=== PATIENT | male | born 1990 | race Caucasian/White ===

== ENCOUNTER 2023-03-16 13:27 | Inpatient (IN) | payer OTHER, SELFPAY ==
[2023-03-16] MEDS ORDERED: NA CHLORIDE 0.9% 1,000 ML ONE ×3 (15:01→20:50)
[2023-03-16] MEDS ORDERED: CEFTRIAXONE 2000 MG/VIAL ONE (15:01)
[2023-03-16] MEDS ORDERED: ACETAMINOPHEN 500 MG TAB ONE (15:01)
[2023-03-16] MEDS ORDERED: IBUPROFEN 400 MG TAB ONE ×2 (15:01→21:10)
[2023-03-16 15:19] LABS: Absolute Lymphocytes (CBC) 0.9 K/uL (0.7-4.9); Hematocrit 40.5 % (39.6-49.0); Lymphocytes % 3.8 % (15.3-44.8); MCV 79.7 fL (80-100); MPV 7.6 fL (7.6-11.3); Platelets 219 thou/uL (152-406); RBC Red Blood Cell Count 5.09 M/uL (4.33-5.43)
[2023-03-16] MEDS ORDERED: NA CHLORIDE 0.9% 100 ML ONE (15:20)
[2023-03-16] MEDS ORDERED: NA CHLORIDE 0.9% 500 ML ONE (15:29)
[2023-03-16 15:35] LABS: Albumin 3.3 g/dL (3.4-5.0); Bilirubin Total 0.7 mg/dL (0.2-1.0); Potassium 3.1 mEq/L (3.5-5.1); Protein, Total 7.4 g/dL (6.4-8.2)
[2023-03-16 15:41] LABS: Protime INR 1.37
[2023-03-16 15:53] LABS: Specific Gravity 1.022 (1.005-1.030); Urine Bacteria 20-50 /HPF (<20); Urine Bilirubin NEGATIVE (Negative); Urine Blood Negative (Negative); Urine Clarity Extremely Turbid (Clear); Urine Color Yellow (Yellow); Urine Glucose 3+ (Negative); Urine Mucus 4+ /HPF (None Seen); Urine Protein 4+ (Over) (Negative); Urine RBC 21-50 /HPF (None Seen); Urine Urobilinogen 1+ (Normal); Urine WBC Clump Many /HPF (None Seen)
--- NOTE | 2023-03-16 16:02 | RAD REPORT ---
EXAM DESCRIPTION: RAD - Chest Single View - 03/16/2023 3:43 pm CLINICAL HISTORY: SOB COMPARISON: No comparisons FINDINGS: Lines: None. Lungs: No evidence of edema or pneumonia. Pleural: No significant pleural effusions or pneumothorax. Cardiac: The heart size is within normal limits. Mediastinum: Within normal limits. Bones: No acute fractures. Other: None IMPRESSION: No acute cardiopulmonary disease.
[2023-03-16] MEDS ORDERED: ONDANSETRON 4 MG/2 ML VIAL ONE (16:54)
--- NOTE | 2023-03-16 17:20 | RAD REPORT ---
EXAM DESCRIPTION: CTAbdomen Pelvis W/Wo Contrast - 03/16/2023 4:58 pm CLINICAL HISTORY: febrile illness, sp catheter, leukocytosis COMPARISON: No comparisons TECHNIQUE: CT of the abdomen and pelvis was performed with and without contrast. All CT scans are performed using dose optimization technique as appropriate and may include automated exposure control or mA/KV adjustment according to patient size. FINDINGS: Lower chest: Circumferential thickened distal esophagus consistent with esophagitis. Liver: No acute abnormality or suspicious lesions. Hepatic steatosis . Biliary: No biliary ductal dilatation. Stomach: No significant focal abnormality. Duodenum: No significant focal abnormality. Pancreas: No significant abnormality. Spleen: No significant abnormality. Adrenal: No suspicious lesions. Kidney/ureter: Mild right-sided hydronephrosis. Patchy right renal enhancement. No ureteral stone is[place] ntified. Retroperitoneum: No retroperitoneal adenopathy. Vascular: No aneurysm. Bowel: No significant focal abnormality. Partial colectomy. Peritoneum: No ascites or free air. Bladder: Suprapubic catheter. Bladder diverticulae. Reproductive: No adnexal masses. Bones: No acute fracture. Spina bifida. Other: Sacral decubitus ulcer. IMPRESSION: Patchy enhancement of the right kidney most consistent with pyelonephritis and mild righ t-sided hydronephrosis. No renal abscess. Suprapubic catheter. Sacral decubitus ulcer without CT evid ence of underlying osteomyelitis.
--- NOTE | 2023-03-16 17:35 | EDPHYS ---
Physician Documentation [facility] Name: Cristino Lamb Age: 32 yrs Sex: Male : 1990 Arrival Date: 03/16/2023 Time: 13:27 Bed 8 Private MD: DOT Physician Michael Perez HPI: 03/16 17:12 This 32 yrs old Male presents to ER via Wheelchair with complaints of Chills,Fatigue, cp3 Fever, Urinary Problem. 17:12 The patient is a 32-year-old male with a history of spina bifida and hydrocephalus who cp3 presents with fever, generalized weakness, chills and cloudy urine output from suprapubic catheter that was changed about 2 weeks ago. Patient denies drainage or purulent material or material from the suprapubic catheter site. Patient endorses a mild cough. No neurologic change. No altered mental status. Per visitor at bedside unclear as to how high the patient's fever was at home as they did not have a thermometer but he has just been feeling extremely hot and feeling weak . Historical: - Allergies: 14:25 Latex, Natural Rubber; cm10 - PMHx: 14:25 spina bifida; hydrocephalus; cm10 - Immunization history:: Adult Immunizations unknown. - Social history:: Smoking status: Reported history of juuling and/or vaping. - Family history:: not pertinent. ROS: 17:12 Constitutional: Positive for body aches, chills, fatigue, fever. cp3 17:12 Cardiovascular: Positive for palpitations. 17:12 Abdomen/GI: Positive for nausea. 17:12 : Positive for urinary symptoms, foul smelling urine, Cloudy urine noted in suprapubic catheter. 17:12 : Positive for urinary symptoms, foul smelling urine. 17:12 All other systems are negative. 17:26 Eyes: Negative for injury, pain, redness, and discharge, ENT: Negative for injury, cp3 pain, and discharge, Respiratory: Negative for shortness of breath, cough, wheezing, and pleuritic chest pain, Back: Negative for injury and pain, MS/Extremity: Negative for injury and deformity, Skin: Negative for injury, rash, and discoloration. 17:26 Cardiovascular: Negative for chest pain, palpitations, and edema, Abdomen/GI: Negative cp3 for abdominal pain, nausea, vomiting, diarrhea, and constipation. 17:26 Allergy/Immunology: Negative for hives, rash, and allergies, Endocrine: Negative for neck swelling, polydipsia, polyuria, polyphagia, and marked weight changes, Hematologic/Lymphatic: Negative for swollen nodes, abnormal bleeding, and unusual bruising. 17:26 : Positive for urinary symptoms. 17:26 MS/extremity: Negative for acute changes. 17:26 Skin: Negative for abrasions, abscesses, avulsion, burn, cellulitis, ecchymosis, erythema. Exam: 17:12 Constitutional: This is a well developed, well nourished patient who is awake, alert, cp3 and in no acute distress. The patient is febrile to 103 and tachycardic but not acutely toxic in appearance and has a GCS of 15 17:12 Head/Face: Normocephalic, atraumatic. Eyes: Pupils equal round and reactive to light, extra-ocular motions intact. Lids and lashes normal. Conjunctiva and sclera are non-icteric and not injected. Cornea within normal limits. Periorbital areas with no swelling, redness, or edema. ENT: Nares patent. No nasal discharge, no septal abnormalities noted. Tympanic membranes are normal and external auditory canals are clear. Oropharynx with no redness, swelling, or masses, exudates, or evidence of obstruction, uvula midline. Mucous membranes moist. Neck: Trachea midline, no thyromegaly or masses palpated, and no cervical lymphadenopathy. Supple, full range of motion without nuchal rigidity, or vertebral point tenderness. No Meningismus. Chest/axilla: Normal chest wall appearance and motion. Nontender with no deformity. No lesions are appreciated. Respiratory: Lungs have equal breath sounds bilaterally, clear to auscultation and percussion. No rales, rhonchi or wheezes noted. No increased work of breathing, no retractions or nasal flaring. Male : Normal genitalia with no discharge or lesions. Skin: Warm, dry with normal turgor. Normal color with no rashes, no lesions, and no evidence of cellulitis. Neuro: Awake and alert, GCS 15, oriented to person, place, time, and situation. Cranial nerves II-XII grossly intact. Patient at baseline neurologic status for lower extremities 17:12 : a suprapubic catheter is noted. 17:12 Musculoskeletal/extremity: Patient with baseline weakness to bilateral lower extremities secondary to spina bifida that is at baseline. Vital Signs: 14:26 BP 122 / 77; Pulse 145; Resp 18; Temp 103.2(O); Pulse Ox 97% ; Weight 87.09 kg; Height cm10 5 ft. 3 in. ; Pain 8/10; 15:25 BP 118 / 80; Pulse 126; Resp 18; Pulse Ox 96% on R/A; db 15:30 BP 126 / 89; Pulse 121; Resp 18; Pulse Ox 99% ; ko1 16:00 BP 131 / 82; Pulse 115; Resp 16; Pulse Ox 99% ; ko1 17:00 BP 124 / 83; Pulse 112; Resp 16; Pulse Ox 99% ; ko1 18:00 BP 121 / 77; Pulse 112; Resp 16; Pulse Ox 98% ; ko1 20:34 Pulse 124; Resp 18; Pulse Ox 98% on R/A; kd3 20:48 Temp 101.5(O); kd3 14:26 Body Mass Index 34.01 (87.09 kg, 160.02 cm) cm10 14:26 Pain Scale: Adult cm10 MDM: 14:29 Patient medically screened. cp3 17:12 Differential diagnosis: The differential diagnosis includes febrile illness, sinus cp3 tachycardia, arrhythmia, UTI, pyelonephritis, catheter associated UTI, sepsis. Data reviewed: vital signs, nurses notes, and as a result, I will admit patient. Consideration of Admission/Observation Patient was admitted/placed on observation. I considered the following discharge prescriptions or medication management in the emergency department Medications were administered in the Emergency Department. See MAR. Response to treatment: the patient's symptoms have mildly improved after treatment. ED course: EKG interpreted by me: Sinus tachycardia with a rate of 124 no evidence of acute KS. ED course: teachers' assistant interpreted by me at 1720: Sinus tachycardia has improved to a rate of 115. ED course: On arrival patient given 30 mL/kg of normal saline, Motrin Tylenol for fever, 2 g Rocephin IV for suspected urinary tract infection with SIRS criteria in a patient with a indwelling catheter. Patient with leukocytosis, normal kidney function, abnormal urinalysis significant for leukocytes nitrates and white blood cells and red blood cells. 17:22 ED course: CT of the abdomen pelvis without contrast reveals pyelonephritis without cp3 abscess in the sacral decubitus. ED course: Will plan to admit for SIRS criteria, pyelo-, febrile illness. 17:26 Management of patient was discussed with the following: Hospitalist: Dr. Wills. . cp3 17:36 ED course: Repeat lactic ordered as reflex and pending at time of admission. cp3 08/ 14:43 Order name: Blood Culture Adult (2) cp3 / 14:43 Order name: CBC with Diff; Complete Time: 15:25 cp3 / 14:43 Order name: CMP; Complete Time: 15:49 cp3 / 14:43 Order name: Lactate w/ 2H reflex if indic.; Complete Time: 15:49 cp3 / 14:43 Order name: Protime (+inr); Complete Time: 15:49 cp3 / 14:43 Order name: Ptt, Activated; Complete Time: 15:49 cp3 / 14:43 Order name: Urinalysis w/ reflexes; Complete Time: 16:10 cp3 08/09 15:58 Order name: Urine Culture EDMS / 19:13 Order name: Urinalysis w/ reflexes EDMS / 19:13 Order name: Basic Metabolic Panel EDMS / 19:13 Order name: Basic Metabolic Panel EDMS / 19:13 Order name: Basic Metabolic Panel EDMS / 19:13 Order name: Basic Metabolic Panel EDMS / 19:13 Order name: CBC with Automated Diff EDMS / 19:13 Order name: CBC with Automated Diff EDMS / 19:13 Order name: CBC with Automated Diff EDMS / 19:13 Order name: CBC with Automated Diff EDMS / 19:13 Order name: Magnesium EDMS / 19:13 Order name: Magnesium EDMS / 19:13 Order name: Magnesium EDMS / 19:13 Order name: Magnesium EDMS / 19:29 Order name: Lactate Sepsis 2 HR Follow-up; Complete Time: 19:48 EDMS / 14:43 Order name: Chest Single View XRAY; Complete Time: 16:10 cp3 / 16:11 Order name: CT Abd/Pelvis- W/WO Contrast; Complete Time: 17:22 cp3 03/16 14:43 Order name: EKG; Complete Time: 14:44 cp3 03/16 19:08 Order name: CONS Physician Consult EDMS 03/16 19:13 Order name: Regular EDMS 03/16 14:43 Order name: Accucheck; Complete Time: 16:53 cp3 03/16 14:43 Order name: Cardiac monitoring; Complete Time: 14:47 cp3 03/16 14:43 Order name: EKG - Nurse/Tech; Complete Time: 15:34 cp3 03/16 14:43 Order name: IV Saline Lock - Large Bore; Complete Time: 15:34 cp3 03/16 14:43 Order name: Labs collected and sent; Complete Time: 15:34 cp3 03/16 14:43 Order name: O2 Per Protocol; Complete Time: 14:47 cp3 03/16 14:43 Order name: O2 Sat Monitoring; Complete Time: 14:47 cp3 03/16 14:43 Order name: Vital Signs; Complete Time: 14:47 cp3 03/16 16:12 Order name: Vital Signs; Complete Time: 16:53 cp3 Administered Medications: 15:00 Drug: Ibuprofen PO 800 mg Route: PO; db 18:28 Follow up: Response: No adverse reaction db 15:00 Drug: NS 0.9% IV (30 ml/kg) 30 ml/kg Route: IV; Rate: bolus; Site: right wrist; db 15:18 Drug: Rocephin IV 2 grams Route: IV; Rate: calculated rate; Site: right wrist; db 15:45 Follow up: Response: No adverse reaction; IV Status: Completed infusion; IV Intake: db 100ml 15:34 Not Given (Patient Refused): Acetaminophen PO 1000 mg PO once db 16:59 Drug: Ondansetron IVP 4 mg Route: IVP; Site: right hand; ko1 19:00 Follow up: Response: No adverse reaction db Disposition Summary: 03/16/23 17:35 Hospitalization Ordered Hospitalization Status: Inpatient Admission cp3 Provider: Hunter Wills cp3 Location: Telemetry/MedSurg (Inpatient) cp3 Condition: Stable cp3 Problem: new cp3 Symptoms: have improved cp3 Bed/Room Type: Standard 3 Room Assignment: 412(03/16/23 21:56) kd3 Diagnosis - Pyelonephritis acute cp3 - Fever, unspecified cp3 - Severe sepsis without septic shock cp3 - Other mechanical complication of urinary (indwelling) catheter - catheter cp3 associated uti in a suprapubic catheter present on arrival Forms: - Medication Reconciliation Form cp3 - SBAR form cp3 Signatures: Dispatcher [employer] Michael Jovel MD MD cp3 Marianna Vázquez RN RN cg Patricia Muhammad RN RN kd3 Maine Martinez RN RN ko1 Judi Omalley RN RN db Shreya Abel RN RN cm10 Corrections: (The following items were deleted from the chart) 20:53 17:35 cp3 cg 21:56 20:53 416 cg kd3
--- NOTE | 2023-03-16 17:35 | ER ---
Nurse's Notes [facility] Name: Cristino Lamb Age: 32 yrs Sex: Male : 1990 Arrival Date: 03/16/2023 Time: 13:27 Bed 8 Private MD: Diagnosis: Pyelonephritis acute;Fever, unspecified;Severe sepsis without septic shock;Other mechanical complication of urinary (indwelling) catheter-catheter associated uti in a suprapubic catheter present on arrival Presentation: 03/16 14:26 Chief complaint: Patient states: chills, fever and urinary issues onset yesterday. Pt cm10 has suprapubic catheter that was changed 03/09. Coronavirus screen: Vaccine status: Patient reports receiving the 2nd dose of the covid vaccine. Ebola Screen: No symptoms or risks identified at this time. Initial Sepsis Screen: Does the patient meet any 2 criteria? Temp <36.0*C (96.8*F)) or > 38.3*C (100.9*F). HR > 90 bpm. Yes Does the patient have a suspected source of infection? Yes: Dysuria/Frequency/Urgency/UTI. Risk Assessment: Do you want to hurt yourself or someone else? Patient reports no desire to harm self or others. Onset of symptoms was March 16, 2023. 14:26 Method Of Arrival: Wheelchair cm10 14:26 Acuity: VANE 2 cm10 Triage Assessment: 15:25 General: Appears in no apparent distress. comfortable, Behavior is calm, cooperative. db Pain: Denies pain. Neuro: Level of Consciousness is awake, alert, obeys commands, Oriented to person, place, time, situation. Respiratory: Airway is patent Respiratory effort is even, unlabored, Respiratory pattern is regular, symmetrical. : Urine is cloudy, PUBIC CATHETER. Historical: - Allergies: 14:25 Latex, Natural Rubber; cm10 - PMHx: 14:25 spina bifida; hydrocephalus; cm10 - Immunization history:: Adult Immunizations unknown. - Social history:: Smoking status: Reported history of juuling and/or vaping. - Family history:: not pertinent. Screenin:30 [facility] ED Fall Risk Assessment (Adult) History of falling in the last 3 months, ko1 including since admission No falls in past 3 months (0 pts) Confusion or Disorientation No (0 pts) Intoxicated or Sedated No (0 pts) Impaired Gait No (0 pts) Mobility Assist Device Used No (0 pt) Altered Elimination No (0 pt) Score/Fall Risk Level 0 - 2 = Low Risk Oriented to surroundings, Maintained a safe environment, Educated pt \T\ family on fall prevention, incl call for assistance when getting out of bed, Assessed \T\ reinforced patient's understanding of fall precautions, Provided non-skid footwear, Hourly rounding (assess needs \T\ fall precautionary measures) done, Used ambulatory aids as needed (educated on \T\ assisted with), Used gait belt as appropriate. Abuse screen: Denies threats or abuse. Denies injuries from another. Nutritional screening: No deficits noted. Tuberculosis screening: No symptoms or risk factors identified. Assessment: 15:36 Reassessment: Patient appears in no apparent distress at this time. Patient and/or db family updated on plan of care and expected duration. Pain level reassessed. Patient is alert, oriented x 3, equal unlabored respirations, skin warm/dry/pink. Patient denies pain at this time. 21:07 General: attempted to call report, no answer on 4th . kd3 Vital Signs: 14:26 BP 122 / 77; Pulse 145; Resp 18; Temp 103.2(O); Pulse Ox 97% ; Weight 87.09 kg; Height cm10 5 ft. 3 in. ; Pain 8/10; 15:25 BP 118 / 80; Pulse 126; Resp 18; Pulse Ox 96% on R/A; db 15:30 BP 126 / 89; Pulse 121; Resp 18; Pulse Ox 99% ; ko1 16:00 BP 131 / 82; Pulse 115; Resp 16; Pulse Ox 99% ; ko1 17:00 BP 124 / 83; Pulse 112; Resp 16; Pulse Ox 99% ; ko1 18:00 BP 121 / 77; Pulse 112; Resp 16; Pulse Ox 98% ; ko1 20:34 Pulse 124; Resp 18; Pulse Ox 98% on R/A; kd3 20:48 Temp 101.5(O); kd3 14:26 Body Mass Index 34.01 (87.09 kg, 160.02 cm) cm10 14:26 Pain Scale: Adult cm10 ED Course: 13:31 Patient arrived in ED. mr 13:37 Michael Perez MD is Attending Physician. cp3 14:28 Triage completed. cm10 14:28 Arm band placed on Patient placed in an exam room, on a stretcher. cm10 14:30 Patient has correct armband on for positive identification. Bed in low position. Call ko1 light in reach. Side rails up X2. Provided Education on: NA. Client placed on continuous cardiac and pulse oximetry monitoring. NIBP monitoring applied. aircraft electrical systems specialist on. Door closed. Noise minimized. Lights dimmed. Warm blanket given. 14:33 Maine Martinez, FABIÁN is Primary Nurse. ko1 15:00 First set of blood cultures drawn. Inserted saline lock: 20 gauge in right wrist, using db aseptic technique. Blood collected. 15:15 Second set of blood cultures drawn by me. db 15:45 Chest Single View XRAY In Process Unspecified. EDMS 17:00 CT Abd/Pelvis- W/WO Contrast In Process Unspecified. EDMS 17:32 Hunter Wills is Hospitalizing Provider. cp3 22:25 No provider procedures requiring assistance completed. Patient admitted, IV remains in kd3 place. Administered Medications: 15:00 Drug: Ibuprofen PO 800 mg Route: PO; db 18:28 Follow up: Response: No adverse reaction db 15:00 Drug: NS 0.9% IV (30 ml/kg) 30 ml/kg Route: IV; Rate: bolus; Site: right wrist; db 15:18 Drug: Rocephin IV 2 grams Route: IV; Rate: calculated rate; Site: right wrist; db 15:45 Follow up: Response: No adverse reaction; IV Status: Completed infusion; IV Intake: db 100ml 15:34 Not Given (Patient Refused): Acetaminophen PO 1000 mg PO once db 16:59 Drug: Ondansetron IVP 4 mg Route: IVP; Site: right hand; ko1 19:00 Follow up: Response: No adverse reaction db Medication: 22:25 VIS not applicable for this client. kd3 Intake: 15:45 IV: 100ml; Total: 100ml. db Outcome: 17:35 Decision to Hospitalize by Provider. cp3 22:25 Admitted to kd3 22:25 Condition: stable 22:25 Discharge instructions given to patient, family, Instructed on follow up and referral plans. the need for admit, Demonstrated understanding of instructions, follow-up care. 22:25 Patient left the ED. kd3 Signatures: Dispatcher [employer] EDMichael Camargo MD MD cp3 Delano, Elisabet mr Jb, Patricia, RN RN kd3 Maine Martinez, RN RN ko1 Judi Omalley, RN RN Shreya Rubio, RN RN cm10
--- NOTE | 2023-03-16 18:28 | P.HP ---
Certification for Inpatient Patient admitted to: Inpatient With expected LOS: <2 Midnights Patient will require the following post-hospital care: None Practitioner: I am a practitioner with admitting privileges, knowledge of patient current condition, hospital course, and medical plan of care. Services: Services provided to patient in accordance with Admission requirements found in Title 42 Section 412.3 of the Code of Federal Regulations Patient History Date of Service: 03/16/23 Reason for admission: Fever History of Present Illness: 32-year-old male with a past medical history of spina bifida and hydrocephalus presents to the emergency room with fever, chills. He reports history of spina bifida, recurrent urinary tract infections, he is visiting from out of town. He reports he is on Bactrim chronically but does not have with him. He reports fever and chills started yesterday. Worse today. He reports cloudy, foul smelling urine. He reports generalized weakness with use of wheelchair for ambulation as needed. He reports suprapubic catheter that is chronic, he request suprapubic catheter to be changed prior to leaving hospital. Plan to admit for pyelonephritis, fever, sepsis without shock. Laboratory evaluation lactic 2.3, repeat 1.5, CMP mild hyponatremia at 134, hypokalemia at 3.1, CBC WBCs 24.50, left shift 87.6, urinalysis leukoesterase greater than 500, positive for bacteria, 5-10 hyaline cast, few yeast, chest x-ray no acute cardiopulmonary disease Allergies latex Allergy (Verified 03/16/23 20:36) Itching wool Allergy (Verified 03/16/23 20:36) Itching Home medications list reviewed: Yes - Past Medical/Surgical History -: Spina bifida -: Hydrocephalus -: Recurrent urinary tract infections -: Chronic suprapubic catheter -: Immobility due to spina bifida -: Hip surgery -: Bladder shunt -: [facility] cardiac shunt -: Tailbone surgery -: Ankle surgery - Family History Family History: Reviewed- Non-Contributory - Social History Smoking Status: Current some day smoker Counseled patient to stop smoking for: less than 10 minutes Alcohol use: Yes CD- Drugs: No Caffeine use: Yes Review of Systems 10-point ROS is otherwise unremarkable Physical Examination - Physical Exam General: Alert, In no apparent distress, Oriented x3, Other (Appears ill) HEENT: Atraumatic, PERRLA Neck: Supple, 2+ carotid pulse no bruit, JVD not distended Respiratory: Clear to auscultation bilaterally, Normal air movement Cardiovascular: No edema, Normal pulses, Regular rate/rhythm Capillary refill: <2 Seconds Gastrointestinal: Normal bowel sounds, Other (Suprapubic indwelling catheter) Musculoskeletal: No clubbing, No swelling Integumentary: No rashes, No breakdown Neurological: Normal gait, Normal speech, Cranial nerves 3-12 intact - Studies Laboratory Data (last 24 hrs) 03/16/23 03/16/23 03/16/23 15:00 15:00 15:00 WBC 24.50 H Hgb 13.1 L Hct 40.5 Plt Count 219 PT 15.1 H INR 1.37 APTT 32.5 Sodium 134 L Potassium 3.1 L BUN 12 Creatinine 0.99 Glucose 178 H Total Bilirubin 0.7 AST 9 L ALT 21 Alkaline Phosphatase 56 Assessment and Plan - Plan Assessment plan Sepsis without shock secondary to pyelonephritis Mild hypokalemia Hyponatremia Spina bifida Chronic indwelling Borrero catheter Recurrent urinary tract infections Immobility secondary to spina bifida History of hydrocephalus secondary to spina bifida Assessment plan Sepsis without shock secondary to pyelonephritis Infectious disease consult, IV antibiotics, Trend cultures, IV fluids laboratory evaluation lactic 2.3, repeat 1.5, CBC WBCs 24.50, left shift 87.6, urinalysis leukoesterase greater than 500, positive for bacteria, 5-10 hyaline cast, few yeast, chest x-ray no acute cardiopulmonary disease Mild hypokalemia Hyponatremia Trend electrolytes replace as needed CMP mild hyponatremia at 134, hypokalemia at 3.1 Spina bifida Chronic indwelling Bor[place] catheter Recurrent urinary tract infections Immobility secondary to spina bifida History of hydrocephalus secondary to spina bifida Regular diet Full code DVT Lovenox Discharge Plan: Home Plan to discharge in: 48 Hours - Advance Directives Does patient have a Living Will: No Does patient have a Durable POA for Healthcare: No - Code Status/Comfort Care Code Status: Full Code Physician Review: Patient Assessed, Agree with Above Assessment and Plan Critical Care: No Time Spent Managing Pts Care (In Minutes): 50
[2023-03-16] MEDS: NA CHLORIDE 0.9% 1,000 ML IV SCH ×2 (20:00→23:09)
[2023-03-16] MEDS ORDERED: IBUPROFEN 400 MG TAB PO PRN (20:33)
[2023-03-16] MEDS: ONDANSETRON 4 MG/2 ML VIAL IV PRN (20:46)
[2023-03-16] MEDS ORDERED: SMZ./TMP. 10 ML in D5W 250 ML IVPB SCH (21:00)
[2023-03-16] MEDS: OXYBUTYNIN ER 5 MG TAB PO SCH (23:16)
[2023-03-17 00:07] VITALS: BMI 34.0
[2023-03-17] MEDS: ONDANSETRON 4 MG/2 ML VIAL IV PRN (05:49)
[2023-03-17] MEDS: OXYBUTYNIN ER 5 MG TAB PO SCH ×3 (08:50→20:39)
[2023-03-17] MEDS: NA CHLORIDE 0.9% 1,000 ML IV SCH ×2 (08:50→22:40)
[2023-03-17] MEDS: CEFTRIAXONE 2,000 MG in NA CHLORIDE 0.9% 100 ML IV SCH (08:51)
[2023-03-17 09:13] LABS: Absolute Lymphocytes (CBC) 0.6 K/uL (0.7-4.9); Hematocrit 36.5 % (39.6-49.0); Lymphocytes % 4.1 % (15.3-44.8); MCV 79.7 fL (80-100); MPV 7.4 fL (7.6-11.3); Platelets 178 thou/uL (152-406); RBC Red Blood Cell Count 4.58 M/uL (4.33-5.43)
[2023-03-17 09:25] LABS: Magnesium 1.9 mg/dL (1.6-2.4); Potassium 3.2 mEq/L (3.5-5.1)
[2023-03-17] MEDS ORDERED: POTASSIUM CL SA 10 MEQ TAB PO ONE (10:00)
[2023-03-17] MEDS ORDERED: POTASSIUM PHOS 30 MM in NA CHLORIDE 0.9% 500 ML IV ONE (10:00)
--- NOTE | 2023-03-17 10:15 | P.CNS ---
Date of Consult: 03/17/23 Reason for Consult: sepsis, pyelonephritis Chief Complaint: Fever History of Present Illness: Patient is a 32 yo male with a PMH of spina bifida, hydrocephalus, suprapubic catheter (since november 2022) who presented to the ED with complaints of fever, chills and foul smelling urine. CT abdomen pelvis revealing right pyelonephritis. ID consulted. Allergies latex Allergy (Verified 03/16/23 20:36) Itching wool Allergy (Verified 03/16/23 20:36) Itching - Past Medical/Surgical History Diabetic: No -: Spina bifida -: Hydrocephalus -: Recurrent urinary tract infections -: Chronic suprapubic catheter -: Immobility due to spina bifida -: Hip surgery -: Bladder shunt -: [facility] cardiac shunt -: Tailbone surgery -: Ankle surgery - Social History Smoking Status: Never smoker Alcohol use: Yes CD- Drugs: No Caffeine use: Yes Place of Residence: Home Review of Systems 10-point ROS is otherwise unremarkable General: Fever, Chills, Weakness Gastrointestinal: Nausea Genitourinary: Other (foul smelling urine. suprapubic catheter), As per HPI Musculoskeletal: Other (non-ambulatory. Wheelchair) Physical Examination Temp Pulse Resp BP Pulse Ox 99.7 F 97 H 18 131/82 100 03/17/23 07:55 03/17/23 07:55 03/17/23 07:55 03/17/23 07:55 03/17/23 07:55 General: Alert, In no apparent distress, Oriented x3 HEENT: Atraumatic, Normocephalic Neck: Supple, JVD not distended Respiratory: Clear to auscultation bilaterally, Normal air movement Cardiovascular: Regular rate/rhythm, Normal S1 S2 Gastrointestinal: Normal bowel sounds, Soft and benign Integumentary: Pressure ulcer (sacrum) Neurological: Normal speech, Normal tone, Normal affect Urinary: Suprapubic catheter Laboratory Data - Reviewed Microbiology Data - Reviewed Imagings Data: - Reviewed Conclusions/Impression: Problem List Sepsis Pyelonephritis Spinda Bifida Hx Hydrocephalus Hx recurrent UTI Sepsis secondary to Pyelonephritis - Suprapubic catheter, chronic - Urinalysis suggestive of uti - CT abdomen pelvis 03/16: "Patchy enhancement of the right kidney most consistent with pyelonephritis and mild right-sided hydronephrosis. No renal abscess. Suprapubic catheter. Sacral decubitus ulcer without CT evidence of underlying osteomyelitis. " - Urine culture 03/16: gram negative rods - Leukocytosis (WBC 15.6) - 24 hour Tmax = 103.2 F - Blood cultures 03/16: no growth 24 hours - Currently on Rocephin (started 03/16) Recommendations - Pyelonephritis: Continue Rocephin for now (03/16-). Patient will require 14 days of antibiotics. - Will follow up with final urine culture reports and adjust abx as appropriate. - Monitor WBC and fever trends. Tylenol PRN. - Pressure offloading measures Case discussed with Tiara Krause
[2023-03-17] MEDS: ACETAMINOPHEN 500 MG TAB PO PRN ×2 (11:24→21:06)
[2023-03-17 18:46] LABS: Potassium 3.3 mEq/L (3.5-5.1)
[2023-03-17 18:47] LABS: Phosphorus 1.5 mg/dL (2.5-4.9)
[2023-03-17 22:27] VITALS: O2SAT 99
[2023-03-18] MEDS: ACETAMINOPHEN 500 MG TAB PO PRN ×2 (05:08→15:53)
[2023-03-18] MEDS: NA CHLORIDE 0.9% 1,000 ML IV SCH ×2 (05:08→18:33)
[2023-03-18 09:34] LABS: Phosphorus 1.6 mg/dL (2.5-4.9); Potassium 3.2 mEq/L (3.5-5.1)
--- NOTE | 2023-03-18 09:35 | P.PN ---
Date of Service: 03/18/23 Chief Complaint: Fever Subjective: Patient seen and examined at bedside. Reports improvement in symptoms. + lower back pain. + mild headache. No new or worsening complaints. Physical Examination Temp Pulse Resp BP Pulse Ox 98.5 F 85 18 109/64 98 03/18/23 06:08 03/18/23 04:00 03/18/23 04:00 03/18/23 04:00 03/18/23 04:00 General: Alert, In no apparent distress, Oriented x3 HEENT: Atraumatic, Normocephalic Neck: Supple, JVD not distended Respiratory: Clear to auscultation bilaterally, Normal air movement Cardiovascular: Regular rate/rhythm, Normal S1 S2 Gastrointestinal: Normal bowel sounds, Soft and benign Integumentary: Pressure ulcer (sacrum) Neurological: Normal speech, Normal tone, Normal affect Urinary: Suprapubic catheter Laboratory Data - Reviewed Microbiology Data - Reviewed Imagings Data: - Reviewed Medications Reviewed Assessment and Plan Problem List Sepsis Pyelonephritis Spinda Bifida Hx Hydrocephalus Hx recurrent UTI Sepsis secondary to Pyelonephritis Gram-negative Bacteremia - Suprapubic catheter, chronic - Urinalysis suggestive of uti - CT abdomen pelvis 03/16: "Patchy enhancement of the right kidney most consistent with pyelonephritis and mild right-sided hydronephrosis. No renal abscess. Suprapubic catheter. Sacral decubitus ulcer without CT evidence of underlying osteomyelitis. " - Urine culture 03/16: Klebsiella pneumoniae - Blood cultures 03/16: gram negative rods in 1 of 4 bottles - Currently on Rocephin (started 03/16) Leukocytosis (WBC 15.6). 24 hour Tmax = 100.3 F Recommendations - Patient will require 14 days of antibiotic therapy (03/16 to 03/30) Continue Rocephin for now. Will follow up with final urine and blood culture reports and adjust abx as needed. If fluoroquinolone sensitive, consider switch to PO. - Monitor WBC and fever trends. Tylenol PRN. - Pressure offloading measures Case discussed with Franklin Krause.
[2023-03-18] MEDS: OXYBUTYNIN ER 5 MG TAB PO SCH ×3 (09:40→20:03)
[2023-03-18] MEDS: CEFTRIAXONE 2,000 MG in NA CHLORIDE 0.9% 100 ML IV SCH (09:40)
[2023-03-18 09:49] LABS: Absolute Lymphocytes (CBC) 0.9 K/uL (0.7-4.9); Hematocrit 36.4 % (39.6-49.0); Lymphocytes % 7.6 % (15.3-44.8); MCV 79.3 fL (80-100); MPV 7.9 fL (7.6-11.3); Platelets 202 thou/uL (152-406); RBC Red Blood Cell Count 4.59 M/uL (4.33-5.43)
[2023-03-18] MEDS ORDERED: POTASSIUM CL SA 10 MEQ TAB PO ONE (13:00)
[2023-03-18] MEDS: POTASS/SODIUM PHOSPHATE 1 PKT POWD.PACK PO SCH (13:31)
[2023-03-19 04:10] LABS: Absolute Lymphocytes (CBC) 1.3 K/uL (0.7-4.9); Hematocrit 34.2 % (39.6-49.0); Lymphocytes % 13.2 % (15.3-44.8); MCV 79.8 fL (80-100); MPV 7.5 fL (7.6-11.3); Platelets 210 thou/uL (152-406); RBC Red Blood Cell Count 4.28 M/uL (4.33-5.43)
[2023-03-19 04:17] LABS: Magnesium 2.3 mg/dL (1.6-2.4); Potassium 3.5 mEq/L (3.5-5.1)
[2023-03-19] MEDS ORDERED: POTASSIUM 25 MEQ EFFERV TAB PO ONE (05:18)
[2023-03-19] MEDS: ACETAMINOPHEN 500 MG TAB PO PRN (05:28)
[2023-03-19] MEDS: CEFTRIAXONE 2,000 MG in NA CHLORIDE 0.9% 100 ML IV SCH (09:13)
[2023-03-19] MEDS: NA CHLORIDE 0.9% 1,000 ML IV SCH (09:13)
[2023-03-19] MEDS: OXYBUTYNIN ER 5 MG TAB PO SCH ×2 (09:13→14:03)
--- NOTE | 2023-03-19 10:49 | P.PN ---
Date of Service: 03/17/23
[2023-03-19 12:33] VITALS: BP 137/78; TEMP 99.7
--- NOTE | 2023-03-20 15:38 | EKG ---
Test Date: 2023-03-16 Test Time: 15:27:04 Sewing Machine Attachment Tester: JAMEL MEASUREMENT RESULTS: Intervals: Rate: 127 ME: 130 QRSD: 70 QT: 292 QTc: 424 [place]: P: 15 ME: 130 QRS: 27 T: -1 INTERPRETIVE STATEMENTS: Sinus tachycardia Otherwise normal ECG No previous ECG available for comparison Electronically Signed On 03-20-23 15:33:48 CDT by Masood Olivera
--- NOTE | 2023-03-20 15:38 | EKG ---
Test Date: 2023-03-16 Test Time: 15:27:34 Hat Blocking Machine Operator: JAMEL MEASUREMENT RESULTS: Intervals: Rate: 127 MA: 132 QRSD: 70 QT: 290 QTc: 421 [place]: P: 16 MA: 132 QRS: 27 T: 0 INTERPRETIVE STATEMENTS: Sinus tachycardia Nonspecific T wave abnormality Abnormal ECG Compared to ECG 03/16/2023 15:27:04 T-wave abnormality now present Electronically Signed On 03-20-23 15:33:46 CDT by Masood Olivera
== END 2023-03-19 15:26 | disposition home or self-care (01) | DRG 698 ==
LOC: ER 13:27 → ERHOLD 19:04 → 4TH 20:56
PROVIDERS: ADMIT Hospitalist; ATTEND Hospitalist
DX: T83.510A Infection and inflammatory reaction due to cystostomy catheter, initial encounter (principal); A41.50 Gram-negative sepsis, unspecified; R65.20 Severe sepsis without septic shock; N10 Acute pyelonephritis; E87.1 Hypo-osmolality and hyponatremia; E87.6 Hypokalemia; Q05.9 Spina bifida, unspecified; B96.1 Klebsiella pneumoniae [K. pneumoniae] as the cause of diseases classified elsewhere; F17.200 Nicotine dependence, unspecified, uncomplicated; Z91.09 Other allergy status, other than to drugs and biological substances; Z91.040 Latex allergy status
CPT/HCPCS: 36415; 71045; 74178; 80048; 80053; 81001; 83605; 83735; 84100; 84132; 85025; 85610; 85730; 87040; 87077; 87086; 87088; 87186; 87205; 93005; 99285; J0696; J2405; J7030; J7040; J7060; Q9967